=== PATIENT | female | born 1995 | race Caucasian/White ===

== ENCOUNTER 2022-01-11 08:38 | Emergency (ER) | payer MEDICAID ==
[~2022-01-11] VITALS: Ht 175.3 cm; Wt 68.0 kg
[2022-01-11] MEDS ORDERED: ACETAMINOPHEN WITH CODEINE 300/30MG TABLET PO ONE (09:15)
[2022-01-11 09:22] VITALS: BP 120/83
[2022-01-11] MEDS ORDERED: TETRACAINE 0.5% OPHTH DROPS 4ML BOTHEYE ONE (10:45)
[2022-01-11] MEDS ORDERED: FLUORESCEIN SODIUM 1MG/STRIP BOTHEYE ONE (10:45)
[2022-01-11] MEDS ORDERED: TOPUD PO (11:16)
[2022-01-11] MEDS ORDERED: BO1 TP (11:16)
== END 2022-01-11 11:30 | disposition home or self-care (01) ==
LOC: ER 08:38
DX: S00.83XA Contusion of other part of head, initial encounter (principal); V49.59XA Passenger injured in collision with other motor vehicles in traffic accident, initial encounter; R03.0 Elevated blood-pressure reading, without diagnosis of hypertension; W22.12XA Striking against or struck by front passenger side automobile airbag, initial encounter; Y93.89 Activity, other specified; Y92.488 Other paved roadways as the place of occurrence of the external cause
CPT/HCPCS: 70486; 81025; 99284

== ENCOUNTER 2022-12-27 19:15 | Emergency (ER) | payer MEDICAID ==
[~2022-12-27] VITALS: Ht 177.8 cm; Wt 74.7 kg
[~2022-12-27 19:15] MED LIST: BO1 TP; TOPUD PO
[2022-12-27 19:51] VITALS: BP 129/79
[2022-12-27 20:19] LABS: BASOPHILS % 0.5 % (0.0-2.0); EOSINOPHILS % 0.4 % (0.0-5.0); HEMATOCRIT. 37.3 % (36.0-48.0); HEMOGLOBIN. 12.5 g/dL (12.0-16.0); LYMPHOCYTES % 26.7 % (20.0-50.0); MEAN CORPUSCULAR HEMOGLOBIN 28.8 pg (28.0-32.0); MEAN CORPUSCULAR HGB CONC 33.6 g/dL (31.0-37.0); MEAN CORPUSCULAR VOLUME 85.6 fL (81.0-99.0); MEAN PLATELET VOLUME 8.9 fl (7.4-10.4); MONOCYTES % 8.1 % (2.0-8.0); NEUTROPHILS % 64.3 % (40.0-76.0); PLATELET 259 x1000/uL (130-400); RED BLOOD CELL COUNT 4.36 mill/uL (4.2-5.4); RED CELL DISTRIBUTION WIDTH 15.3 % (11.6-14.6); WHITE BLOOD COUNT 10.4 x1000/uL (4.5-11.0)
[2022-12-27 20:24] LABS: CHLORIDE 103 mEq/L (98-107); INDEX HEMOLYSI 1 (1-3); INDEX ICTERIC 1 (1-4); INDEX LIPEMIC 1 (1-3); POTASSIUM 4.1 mEq/L (3.5-5.1); SODIUM 134 mEq/L (136-145)
[2022-12-27 20:32] LABS: ALANINE AMINOTRANSFERASE 19 IU/L (13-61); ALBUMIN 3.9 g/dL (3.4-5.0); ASPARTATE AMINOTRANSFERASE 14 IU/L (15-37); BILIRUBIN TOTAL 0.4 mg/dL (0.1-1.0); CALCIUM 9.3 mg/dL (8.5-10.1); CARBON DIOXIDE 25 mEq/L (21-32); CREATININE 0.7 mg/dL (0.6-1.3); GLUCOSE 91 mg/dL (70-105); PROTEIN TOTAL 7.6 g/dL (6.0-8.3); UREA NITROGEN BLOOD 9 mg/dL (7-21)
[2022-12-27 21:45] LABS: CLARITY URINE CLEAR (CLEAR); COLOR URINE YELLOW (YELLOW); GLUCOSE URINE NEGATIVE (NEGATIVE); KETONES URINE 1+ (NEGATIVE); LEUKOCYTE ESTERASE URINE 1+ (NEGATIVE); NITRITE URINE NEGATIVE (NEGATIVE); OCCULT BLOOD URINE TRACE (NEGATIVE); PH URINE 6.5 (4.5-8.0); PROTEIN URINE NEGATIVE (NEGATIVE); SPECIFIC GRAVITY URINE 1.013 (1.005-1.030); UROBILINOGEN URINE 0.2 E.U./dL (0.2-1.0)
[2022-12-27 21:49] LABS: UCG SCREEN POSITIVE
[2022-12-27 21:50] LABS: UCG QC LOT# 618504
[2022-12-27 22:20] LABS: BACTERIA URINE 1+; RBC URINE 0-2 /hpf (0-2); SQUAMOUS EPITHELIAL CELL URINE 1+ /lpf (RARE/1+)
[2022-12-27] MEDS ORDERED: FAMOTIDINE 20MG TABLET PO ONE (23:30)
[2022-12-27] MEDS ORDERED: ONDANSETRON 4MG ODT PO ONE (23:30)
[2022-12-27] MEDS ORDERED: ACETAMINOPHEN 325MG TABLET PO PRN (23:30)
[2022-12-28 01:37] VITALS: PULSE 78; RESP 19; TEMP 98.4
[2022-12-28] MEDS ORDERED: ONDANSETRON HCL 4MG/2ML INJ IV STA (02:06)
[2022-12-28] MEDS ORDERED: SODIUM CHLORIDE 0.9% 1,000 ML IV ONE (02:15)
[2022-12-28] MEDS ORDERED: CEFTRIAXONE 1GM PREMIX 50 ML IV ONE (02:15)
[2022-12-28] MEDS ORDERED: CEPH500C2 MT (02:35)
== END 2022-12-28 02:30 | disposition left against medical advice (07) ==
LOC: ER 19:15 → CANBEDREQ 12-28 03:41
DX: O26.891 Other specified pregnancy related conditions, first trimester (principal); O23.31 Infections of other parts of urinary tract in pregnancy, first trimester; K80.50 Calculus of bile duct without cholangitis or cholecystitis without obstruction; Z87.19 Personal history of other diseases of the digestive system; Z3A.01 Less than 8 weeks gestation of pregnancy
CPT/HCPCS: 99284; 76801; 80053; 81003; 81025; 84702; 83690; 85025; 36415; 76705; Q0162; J7030

== ENCOUNTER 2024-09-06 07:43 | Emergency (ER) | payer MEDICAID ==
[~2024-09-06] VITALS: Ht 175.3 cm; Wt 74.8 kg
[~2024-09-06 07:43] MED LIST changes: +CEPH500C2 MT
[2024-09-06 07:47] VITALS: O2SAT 99
[2024-09-06 08:12] LABS: BASOPHILS % 0.6 % (0.0-2.0); EOSINOPHILS % 1.9 % (0.0-5.0); HEMATOCRIT. 39.4 % (36.0-48.0); HEMOGLOBIN. 13.1 g/dL (12.0-16.0); LYMPHOCYTES % 23.6 % (20.0-50.0); MEAN CORPUSCULAR HGB CONC 33.4 g/dL (31.0-37.0); MEAN PLATELET VOLUME 8.8 fl (7.4-10.4); MONOCYTES % 8.6 % (2.0-8.0); NEUTROPHILS % 65.3 % (40.0-76.0); PLATELET 248 x1000/uL (130-400); RED BLOOD CELL COUNT 4.38 mill/uL (4.2-5.4); RED CELL DISTRIBUTION WIDTH 14.2 % (11.6-14.6); WHITE BLOOD COUNT 8.1 x1000/uL (4.5-11.0)
[2024-09-06] MEDS: DEXT 5%/0.9% NACL 1,000 ML IV ONE (08:36)
[2024-09-06 08:37] LABS: CHLORIDE 105 mEq/L (98-107); POTASSIUM 3.6 mEq/L (3.5-5.1); SODIUM 138 mEq/L (136-145)
[2024-09-06] MEDS: METOCLOPRAMIDE HCL 10MG/2ML VIAL IV ONE (08:37)
[2024-09-06 08:38] LABS: CARBON DIOXIDE 24 mEq/L (21-32)
[2024-09-06 08:39] LABS: CALCIUM 9.6 mg/dL (8.7-10.4)
[2024-09-06 08:43] LABS: CREATININE 0.7 mg/dL (0.6-1.0)
[2024-09-06 08:44] LABS: GLUCOSE 97 mg/dL (70-105); UREA NITROGEN BLOOD 9 mg/dL (9-23)
[2024-09-06 08:45] LABS: ALANINE AMINOTRANSFERASE 36 IU/L (10-49); ALBUMIN 3.9 g/dL (3.2-4.8); ASPARTATE AMINOTRANSFERASE 31 IU/L (<34); CLARITY URINE CLOUDY (CLEAR); COLOR URINE YELLOW (YELLOW); GLUCOSE URINE NEGATIVE (NEGATIVE); KETONES URINE NEGATIVE (NEGATIVE); LEUKOCYTE ESTERASE URINE 3+ (NEGATIVE); NITRITE URINE NEGATIVE (NEGATIVE); OCCULT BLOOD URINE NEGATIVE (NEGATIVE); PROTEIN URINE NEGATIVE (NEGATIVE); SPECIFIC GRAVITY URINE 1.019 (1.005-1.030)
[2024-09-06 08:46] LABS: BILIRUBIN DIRECT < 0.1 mg/dL (<=3.0); BILIRUBIN TOTAL 0.4 mg/dL (0.1-1.0)
[2024-09-06] MEDS: ACETAMINOPHEN 1000MG/100ML 100 ML IV ONE (08:47)
[2024-09-06 09:32] LABS: SQUAMOUS EPITHELIAL CELL URINE 3+ /lpf (RARE/1+)
[2024-09-06 09:33] LABS: BACTERIA URINE 1+; RBC URINE 0-2 /hpf (0-2); WBC URINE 0-2 /hpf (0-2)
[2024-09-06 09:43] VITALS: BP 115/65; PULSE 74; RESP 16; TEMP 36.8; O2SAT 99
[2024-09-06 11:31] LABS: B-HCG QUANTITATIVE 27063 mIU/mL (<6)
[2024-09-07] MEDS ORDERED: CEFP200T13 MT (09:17)
[2024-09-07] MEDS ORDERED: TOPUD PO (09:17)
== END 2024-09-06 11:34 | disposition home or self-care (01) ==
LOC: ER 07:43
DX: O26.892 Other specified pregnancy related conditions, second trimester (principal); R11.2 Nausea with vomiting, unspecified; Z3A.15 15 weeks gestation of pregnancy
CPT/HCPCS: 99284; 96365; 96375; 80076; 80048; 81003; 81025; 82010; 84702; 83690; 85025; 36415; J2765; J7042; J0131

== ENCOUNTER 2024-09-07 02:23 | Emergency (ER) | payer MEDICAID ==
[~2024-09-07] VITALS: Ht 175.3 cm; Wt 79.7 kg
[2024-09-07 02:32] VITALS: O2SAT 99
[2024-09-07 08:06] LABS: CLARITY URINE CLEAR (CLEAR); COLOR URINE YELLOW (YELLOW); GLUCOSE URINE NEGATIVE (NEGATIVE); KETONES URINE TRACE (NEGATIVE); LEUKOCYTE ESTERASE URINE 1+ (NEGATIVE); NITRITE URINE NEGATIVE (NEGATIVE); OCCULT BLOOD URINE NEGATIVE (NEGATIVE); PROTEIN URINE NEGATIVE (NEGATIVE); SPECIFIC GRAVITY URINE 1.021 (1.005-1.030)
[2024-09-07 08:13] LABS: BASOPHILS % 0.7 % (0.0-2.0); EOSINOPHILS % 3.3 % (0.0-5.0); HEMATOCRIT. 36.1 % (36.0-48.0); HEMOGLOBIN. 12.2 g/dL (12.0-16.0); LYMPHOCYTES % 26.1 % (20.0-50.0); MEAN CORPUSCULAR HEMOGLOBIN 30.4 pg (28.0-32.0); MEAN CORPUSCULAR HGB CONC 33.8 g/dL (31.0-37.0); MEAN CORPUSCULAR VOLUME 89.8 fL (81.0-99.0); MONOCYTES % 7.3 % (2.0-8.0); NEUTROPHILS % 62.6 % (40.0-76.0); PLATELET 242 x1000/uL (130-400); RED BLOOD CELL COUNT 4.02 mill/uL (4.2-5.4); RED CELL DISTRIBUTION WIDTH 14.3 % (11.6-14.6); WHITE BLOOD COUNT 5.8 x1000/uL (4.5-11.0)
[2024-09-07 08:18] LABS: MUCUS URINE 2+ /lpf (< = 2+); SQUAMOUS EPITHELIAL CELL URINE 2+ /lpf (RARE/1+)
[2024-09-07 08:19] LABS: BACTERIA URINE 3+
[2024-09-07 08:21] LABS: CHLORIDE 106 mEq/L (98-107); POTASSIUM 3.8 mEq/L (3.5-5.1); SODIUM 136 mEq/L (136-145)
[2024-09-07 08:22] LABS: CALCIUM 9.2 mg/dL (8.7-10.4); CARBON DIOXIDE 23 mEq/L (21-32)
[2024-09-07 08:27] LABS: CREATININE 0.7 mg/dL (0.6-1.0); GLUCOSE 83 mg/dL (70-105); UREA NITROGEN BLOOD 8 mg/dL (9-23)
[2024-09-07 08:29] LABS: ALANINE AMINOTRANSFERASE 32 IU/L (10-49); ALBUMIN 3.9 g/dL (3.2-4.8); ASPARTATE AMINOTRANSFERASE 26 IU/L (<34); BILIRUBIN TOTAL 0.4 mg/dL (0.1-1.0); PROTEIN TOTAL 6.7 g/dL (6.0-8.3)
[2024-09-07 08:44] LABS: B-HCG QUANTITATIVE 24180 mIU/mL (<6)
[2024-09-07 09:15] VITALS: TEMP 36.5
[2024-09-07] MEDS ORDERED: CEFP200T13 MT (09:17)
[2024-09-07] MEDS ORDERED: TOPUD PO (09:17)
[2024-09-07] MEDS: ACETAMINOPHEN 325MG TABLET PO ONE (09:49)
[2024-09-07] MEDS: ONDANSETRON HCL 4MG/2ML INJ IV ONE (09:49)
[2024-09-07] MEDS: CEFTRIAXONE 1GM/50ML 50 ML IV ONE (09:50)
[2024-09-07] MEDS: MORPHINE SULFATE 2 MG/ML INJ (NOT FOR IM USE) IV ONE (09:50)
[2024-09-07 10:00] VITALS: BP 115/75; PULSE 66; RESP 16; O2SAT 99
== END 2024-09-07 10:16 | disposition home or self-care (01) ==
LOC: ER 02:40
DX: O23.42 Unspecified infection of urinary tract in pregnancy, second trimester (principal); O00.01 Abdominal pregnancy with intrauterine pregnancy; N39.0 Urinary tract infection, site not specified; Z3A.15 15 weeks gestation of pregnancy; R51.9 Headache, unspecified; O26.892 Other specified pregnancy related conditions, second trimester
CPT/HCPCS: 80053; 81003; 81025; 84702; 83690; 85025; 86850; 86900; 86901; 36415; 70450; 76805; 96374; 96375; 99285; J0696; J2405; J2270; Z7610